=== PATIENT | female | born 1950 | race Caucasian/White ===

== ENCOUNTER → 2022-12-24 | Day surgery (SDC) | payer MEDICARE ==
[2022-12-21 10:01] LABS: HEMATOCRIT 38.4 % (34.2-44.1); HEMOGLOBIN 12.3 g/dL (12.0-16.0)
[2022-12-21 10:17] LABS: ANION GAP 11.7 mmol/L (8-16); CALCIUM 9.4 mg/dL (8.4-10.2); CREATININE, SERUM 0.63 mg/dL (0.57-1.11); POTASSIUM 3.7 mmol/L (3.5-5.1)
[~2022-12-24] MED LIST: ALENDRONATE SOD70 MG PO; AMLODIPINE BESYL5 MG PO; BALANCED SALT SOLN (OPTH) 15 ML BTL IO ONE; BIOTIN 800 MCG1 EACH PO; BUPIVACAINE HC 0.75% PF 10ML VIAL INJ ONE; CALCIUM ACETAT667 M1 PO; CRESTOR10 MG PO; CYCLOPENTOLATE HCL 2% OPTH SOLN 2 ML BTL OP ONE; EPINEPHRINE HCL 1:1000 1ML 1 MG/ML AMP ONE; FLONASE ALLERG9.9 ML INH; FLUOXETINE HCL20 MG PO; LACTATED RINGER'S 1,000 ML ONE; LEVOCETIRIZINE D5 MG PO; LIDOCAINE 2% /EPINEPHRINE 20 ML SDV INJ ONE; LIDOCAINE HCL 2% LOCAL INJ 5 ML SDV VIAL INJ ONE; LIDOCAINE HCL-PF 4% 40 MG/1 ML 5ML AMP ONE; LUNESTA2 MG PO; MELOXICAM7.5 MG PO; MIDAZOLAM HCL 2 MG/2 ML VIAL ONE; MOXIFLOXACIN HCL(OPTH) 3 ML BTL ONE; PHENYLEPHRINE HCL 2 ML DROPS ONE; PILOCARPINE HCL(OPTH) 15 ML LIQD ONE; POVIDONE IODINE 0.05% 0.05 % ML PO ONE; POVIDONE IODINE 5% (OPTH) 30 ML BTL ONE; PROPOFOL IV EMULSION 10 MG/ML 20 ML VIAL ONE; PROTONIX20 MG PO; SLOW RELEASE I143 MG PO; TOBRAMYCIN/DEXAMETHASONE(OPTH) 3.5 GM TUBE ONE; VITAMIN B COMP1 EACH PO; VITAMIN D250 MCG PO
[2022-12-24 09:16] VITALS: TEMP 97.2
[2022-12-24 09:26] VITALS: BP 113/56; PULSE 71; RESP 18; O2SAT 100
== END | disposition home or self-care (01) ==
LOC: OR 06:01
PROVIDERS: ATTEND Ophthalmology
DX: H25.12 Age-related nuclear cataract, left eye (principal); G47.33 Obstructive sleep apnea (adult) (pediatric); D64.9 Anemia, unspecified; I10 Essential (primary) hypertension; E78.5 Hyperlipidemia, unspecified; J45.909 Unspecified asthma, uncomplicated; K21.9 Gastro-esophageal reflux disease without esophagitis; F41.9 Anxiety disorder, unspecified; Z88.6 Allergy status to analgesic agent; Z88.4 Allergy status to anesthetic agent; Z88.2 Allergy status to sulfonamides; Z01.810 Encounter for preprocedural cardiovascular examination; Z01.812 Encounter for preprocedural laboratory examination; Z79.1 Long term (current) use of non-steroidal anti-inflammatories (NSAID); Z79.899 Other long term (current) drug therapy; Z85.118 Personal history of other malignant neoplasm of bronchus and lung
CPT/HCPCS: 36415; 66984; 80048; 85014; 85018; 93005; J0171; J2001 ×2; J2250; J2704; J7121; V2632